=== PATIENT | male | born 1955 | race Caucasian/White ===

== ENCOUNTER 2025-01-03 01:51 | Day surgery (SDC) | payer MEDICARE, OTHER, SELFPAY ==
[2024-12-24 11:24] VITALS: BMI 27.6
--- OUTSIDE RECORDS SUMMARY | 2025-01-03 01:54 | XMS_ITS | Encounter Summary ---
Author Organization [facility] Address [address] [place] [address] Care Team Providers Care Hose Finisher Name Role Phone Kalpana Garcia Primary Care Provider +1- [phone] Encounter Details Date Type Department Care Team (Late st Contact Info) Description 01/02/2025 Sapato.rut Message Enc [facility] Medical Group Family & Internal Medicine 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
--- OUTSIDE RECORDS SUMMARY | 2025-01-03 01:54 | XMS_ITS | Encounter Summary ---
Author Organization [facility] Address [address] [place] [address] Phone Care Team Providers Care Ice Scraper Name Role Phone Kalpana Garcia Primary Care Provider + Reason for Visit * Reason Onset Date Comments Clearance for Endoscopy 01/02/2025 Encounter Details Date Type Department Care Team (Late st Contact Info) Description 01/02/[address] 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 Do no have cb number. Upon search, I lm for Sybil with [facility] Endoscopy lab, , requesting cb. * Telephone Encounter - Krystal Carpio - 01/02/2025 11:54 AM CDT Maite Strauss with [facility] called requesting clearance for tomorrow's procedure to be faxed to [phone]. documented in this encounter Plan of Treatment Not on file documented as of this encounter Visit Diagnoses Not on filedocumented in this encounter Care Teams Ice Scraper Relationship Specialty Start Date End Date Kalpana Garcia PA [address] [place] [address] PCP - General Nurse Practitioner 12/16/22 documented as of this encounter
--- OUTSIDE RECORDS SUMMARY | 2025-01-03 01:54 | XMS_ITS | Clinical Summary ---
Author Organization [facility] Address [address] [place] [address] Care Team Providers Care Flour Worker Name Role Phone Kalpana Garcia Primary Care Provider + Allergies No known active allergies Medications aspirin 81 mg enteric coated tablet Take 1 tablet (81 mg total) by mouth daily Active SUMAtriptan (IMITREX) 25 mg tablet Take 1 tablet (25 mg total) by mouth as needed 3 Active amoxicillin (AMOXIL) 500 mg tablet/capsuleI ndications:Prop hylaxis, Medical Take 4 caps (2000 mg) 1 hour prior to procedure. 12 tablet/capsu le 1 3 Active atorvastatin (LIPITOR) 40 mg tablet Take 1 tablet (40 mg total) by mouth daily 90 tablet 3 5 12/28/19 26 Active simvastatin (ZOCOR) 20 mg tablet Take 1 tablet (20 mg total) by mouth reel hooker before breakfast 3 12/28/19 25 Discontinu ed(Alterna te therapy) Active Problems Problem Noted Date Diagnosed Date Hypercholesteremia 12/09/2023 Syncope 01/02/2013 Palpitations 10/31/2012 Mitral valve disease 10/31/2012 Encounters Date Type Department Care Team Description 01/02/2025 Telephone [facility] Medicine Cardiology [address] [facility] 8th [place] [address] [place] [address] Neville Arora MD Clearance for Endoscopy 12/27/2024 7:37 AM CDT - 12/27/2024 11:59 PM CDT Hospital Encounter [facility] [address] [place] [address] Neville Arora MD Hypercholesteremia Discharge Disposition: Discharge to home or self care 12/27/2024 Results Follow-Up [facility] Medicine Cardiology [address] [facility] 8th [place] [address] [place] [address] Coronary Calcium Scoring 12/12/2024 10:15 AM CDT Office Visit [facility] Medicine Cardiology [address] [facility] 8th [place] [address] [place] [address] Neville Arora MD Hypercholesteremia (Primary Dx); Mitral valve disease from Last 3 Months Family History Medical History Relation Name Comments Congenital heart disease Brother Congenital heart disease Father Congenital heart disease Sister Relation Name Status Comments Brother Father Sister Social History Tobacco Use Types Packs/Day Years Used Date Smoking Tobacco: Never Sex and Gender Information Value Date Recorded Sex Assigned at Not on file 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 Gender Identity Not on file Sexual Orientation Not on file Obstetrics History Last Filed Vital Signs Vital Sign Reading Time Taken Comments Blood Pressure 123/82 12/12/2024 9:50 AM CDT Pulse 69 12/12/2024 9:50 AM CDT Temperature - - Respiratory Rate - - Oxygen Saturation 99% 12/12/2024 9:50 AM CDT Inhaled Oxygen Concentration - - Weight 95.7 kg (211 lb) 12/12/2024 9:50 AM CDT Height 185.4 cm (6' 1) 12/12/2024 9:50 AM CDT Body Mass Index 27.84 12/12/2024 9:50 AM CDT Plan of Treatment Health Maintenance Due Date Last Done Comments Colon Cancer Screening-Colonoscopy 1957 Depression Screening 1957 Fall Risk Assessment 1957 Hepatitis C Screening 1957 Prostate Cancer Screening-PSA 1957 DTaP/Tdap/Td Vaccine (1 - Tdap) 1968 Hepatitis B Screening 1975 Well Visit 65+ 2022 Covid-19 Vaccine (2024-2 6 season) 2024 03/12/2022, 04/03/2021, 07/10/2020 Influenza Vaccine (#1) 2024 4, 03/12/2022, 03/04/2021, Additional history exists Pneumococcal vaccine 65+ Completed 12/03/2022 Zoster Vaccine Completed 04/29/2023, 02/24/2023 Procedures Procedure Name Priority Date/Time Associated Diagnosis Comments CT HEART CALCIUM Schedule Routine, Read Routine (OP Routine) 12/27/2024 8:24 AM CDT Hypercholesteremia from Last 3 Months Results * CT Coronary Calcium Scoring (12/27/2024 8:24 AM CDT) Anatomical Region Laterality Modality Chest Computed Tomogra phy 12/27/2024 11:1 2 AM CDT Impressions 12/27/2024 11:12 AM CDT 1. Calcium score of 82.4 2. Incidental findings: None significant. Electronically signed by: Jimmie Alvarado M.D. Narrative 12/27/2024 11:12 AM CDT EXAMINATION: CT OF THE HEART W/O CONTRAST - CORONARY CALCIUM TECHNIQUE: High-resolution, cardiac-gated Computed Tomography of the heart with attention devoted to the coronary arteries was performed with a 128 slice MDCT Scanner. Coronary calcification was analyzed using a FNZ 3D workstation with calcified plaque analysis software. RESULTS: Interpretation of coronary calcification is provided below: Your patient's Agatston Coronary Calcium score is 82.4. This total Coronary Calcium score of 82.4 places the patient between the 25th and 50th percentile for an apparently healthy person of the same age and gender. In general, the lower the percentile rank, the lower the cardiac risk. This percentile rank assumes the absence of symptoms and does not account for risk factors or for the number of calcified vessels. Incidental Findings: There is no consolidation, pleural effusion, or pneumothorax within the imaged lungs. A mitral valve replacement is present. Mitral annular calcification is noted. Calcified mediastinal and right hilar lymph nodes are consistent with old granulomatous disease. No aggressive osseous lesion is identified. The Calcium Score should be interpreted in the context of several factors: Clinical decision-making requires the Calcium Score to be weighed along with other factors, i.e. the number of calcified vessels, the patient's age, gender, symptoms and risk factors. Normal score for any age is ideally zero. The Calcium Score has greater significance when it is above the 75th percentile of age and sex group, or if calcium is present in 2 or more vessels. A score of zero indicates no coronary artery calcification and this implies the absence of significant angiographic coronary narrowing in 99% of cases. It does not absolutely rule out the presence of soft non-calcified plaque, especially in younger patients and those who smoke heavily. Procedure Note Jimmie Alvarado MD PhD - 12/27/2024 EXAMINATION: CT OF THE HEART W/O CONTRAST - CORONARY CALCIUM TECHNIQUE: High-resolution, cardiac-gated Computed Tomography of the heart with attention devoted to the coronary arteries was performed with a 128 slice MDCT Scanner. Coronary calcification was analyzed using a FNZ 3D workstation with calcified plaque analysis software. RESULTS: Interpretation of coronary calcification is provided below: Your patient's Agatston Coronary Calcium score is 82.4. This total Coronary Calcium score of 82.4 places the patient between the 25th and 50th percentile for an apparently healthy person of the same age and gender. In general, the lower the percentile rank, the lower the cardiac risk. This percentile rank assumes the absence of symptoms and does not account for risk factors or for the number of calcified vessels. Incidental Findings: There is no consolidation, pleural effusion, or pneumothorax within the imaged lungs. A mitral valve replacement is present. Mitral annular calcification is noted. Calcified mediastinal and right hilar lymph nodes are consistent with old granulomatous disease. No aggressive osseous lesion is identified. The Calcium Score should be interpreted in the context of several factors: Clinical decision-making requires the Calcium Score to be weighed along with other factors, i.e. the number of calcified vessels, the patient's age, gender, symptoms and risk factors. Normal score for any age is ideally zero. The Calcium Score has greater significance when it is above the 75th percentile of age and sex group, or if calcium is present in 2 or more vessels. A score of zero indicates no coronary artery calcification and this implies the absence of significant angiographic coronary narrowing in 99% of cases. It does not absolutely rule out the presence of soft non-calcified plaque, especially in younger patients and those who smoke heavily. IMPRESSION: 1. Calcium score of 82.4 2. Incidental findings: None significant. Electronically signed by: Jimmie Alvarado M.D. Neville Arora MD IMG CT PROCEDURES Kathryn l Result from Last 3 Months Insurance [employer] MEDICARE FOR LIFE Care Teams Flour Worker Relationship Specialty Start Date End Date Kalpana Garcia PA [address] [place] [id number] PCP - General Nurse Practitioner 12/16/22
--- OUTSIDE RECORDS SUMMARY | 2025-01-03 01:54 | XMS_ITS | Clinical Summary ---
Author Organization [facility] [place] [address] Care Team Providers Care Rod Bending Machine Operator Name Role Phone Mert Garcia Primary Care Provider +1- [phone] Allergies No known active allergies Medications aspirin EC 81 MG tablet Take 1 tablet (81 mg total) by mouth daily. Active multi vitamin/minerals tablet Take 1 tablet by mouth daily. Active SUMAtriptan (IMITREX) 25 MG tabletIndications:R ight hip pain,Chronic right-sided low back pain without sciatica Take 1 tablet (25 mg total) by mouth as needed. Take one tablet at onset of migraine. May repeat after 2 hours if needed. Do not exceed 3 tablets in 24 hours. 12 tablet 3 Active simvastatin (ZOCOR) 20 MG tabletIndications:M ixed hyperlipidemia Take 1 tablet (20 mg total) by mouth every morning. 90 tablet 3 5 Active Active Problems Problem Noted Date Diagnosed Date Congenital heart defect (HHS/HCC) 05/22/2020 Intractable migraine without aura and without status migrainosus 05/21/2020 Mixed hyperlipidemia 05/21/2020 Syncope 01/02/2013 Mitral valve disease 10/31/2012 Palpitations 10/31/2012 Resolved Problems Problem Noted Date Diagnosed Date Resolved Date Right knee injury 12/03/2022 07/31/2024 Toenail fungus 12/03/2022 07/31/2024 Encounters Date Type Department Care Team Description 01/02/2025 MyChart Message Enc [facility] Medical Group Family & Internal Medicine [address] [phone] Mert Garcia, APNP stop simvastatin automatic delivery from [employer] 12/12/2024 Scan MG HEALTH INFO SRVCS Scanned, Doc Med Group 12/12/2024 MyChart Message Enc [facility] & Internal [address] [phone] Mert Garcia, APNP right knee 10/17/2024 Results Follow-Up [facility] Internal [address] [address] Mert Garcia, APNP XR WRIST LT MIN 3V 10/16/2024 Travel 10/16/2024 MyChart Message Enc [facility] Internal [address] [phone] Mert Garcia, APNP Fractured wrist from Last 3 Months Immunizations Immunization Administration Dates Next Due FLUAD (IIV, Trivalent, 0.5 M L Pre-filled Syringe) 03/06/2024 Fluzone High Dose - >Age 65 (Prefilled Syringe) 02/17/2023 Influenza Adult (Generic) 03/12/2022,03/04/2021, 02/08/2018 MODERNA COVID-19 BIVALENT (1 2+), MRNA, LNP-S, PF 03/12/2022 MODERNA COVID-19 (JITNEY DRIVER TINO HORACIO), MRNA, LNP-S, PF, 50 MCG/ 0.25 ML DOSE 04/03/2021 Pneumococcal (Prevnar 20) 12/03/2022 Shingrix 04/29/2023,02/24/2023 Family History Medical History Relation Comments Autoimmune Disease Brother Cardiac issues Father Cardiac issues Sister 1 Anxiety Sister 2 Depression Sister 2 Depression Sister 5 Relation Status Comments Brother Alive Father Mother Sister 1 Alive Sister 2 Alive Sister 3 Alive Sister 4 Alive Sister 5 Alive Son 1 Alive Son 2 Alive Son 3 Alive Social History Tobacco Use Types Packs/Day Years Used Date Smoking Tobacco: Never Smokeless Tobacco: Never Tobacco Cessation:Counseling Given: No Alcohol Use Standard Drinks/Week Comments Yes 50 (1 standard drink = 0.6 oz pure alcohol) Every day pt drinks, couple glasses of wine PHQ-2 Answer Date Recorded Patient Health Questionnaire-2 Score 0 07/31/2024 Sex and Gender Information Value Date Recorded Sex Assigned at Not on file 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 Gender Identity Male 09/10/2021 4:20 PM CDT Sexual Orientation Bisexual 09/10/2021 4: 20 PM CDT Last Filed Vital Signs Vital Sign Reading Time Taken Comments Blood Pressure 118/70 07/31/2024 8:42 AM CDT Pulse 67 07/31/2024 8:42 AM CDT Temperature 36 C (96.8 F) 07/31/2024 8:42 AM CDT Respiratory Rate 16 07/31/2024 8:42 AM CDT Oxygen Saturation 97% 07/31/2024 8:42 AM CDT Inhaled Oxygen Concentration - - Weight 98.2 kg (216 lb 6.4 oz) 07/31/2024 8:42 A M CDT Height 185.4 cm (6' 1) 07/31/2024 8:42 AM CDT Body Mass Index 28.55 07/31/2024 8:42 AM CDT Plan of Treatment Health Maintenance Due Date Last Done Comments DTaP, Tdap and Td Vaccines ( 1 - Tdap) 1976 RSV Immunization or 60+ Years (1 - Risk 60-74 years 1-dose series) 2017 Annual Medicare Wellness Visit 12/05/2023 12/03/2022 COVID-19 Vaccine (4 - 2024-2 6 season) 2024 03/12/2022, 04/03/2021, 07/10/2020 Colorectal Cancer Screening Colonoscopy (10 Years) 07/24/2028 07/24/2018 Pneumococcal Vaccine: 50+ Years Completed 12/03/2022 Zoster Vaccines Completed 04/29/2023, 02/24/2023 PHQ-2 (Physician [facility]) Completed 07/31/2024 Hepatitis C Completed 08/03/2024 Meningococcal B Vaccine Aged Out No l onger eligible based on patient's age to complete this topic Meningococcal Vaccine Aged Out No zoë uyen eligible based on patient's age to complete this topic RSV Immunizations Under 20 Months Aged Out No longer eligible b ased on patient's age to complete this topic Procedures Procedure Name Priority Date/Time Associated Diagnosis Comments XR WRIST LT MIN 3V Routine 10/16/2024 11 :37 AM CDT Acute pain of left wrist HEPATITIS C ANTIBODY Routine 08/03/2024 8:23 AM CDT Need for hepatitis C screening test COLONOSCOPY GENERIC (SCAN ORDER) 07/24/2018 from Last 3 Months or Most Recently Relevant to Health Maintenance Results * XR WRIST LT MIN 3V (10/16/2024 11:37 AM CDT) Anatomical Region Laterality Modality Wrist Radiographic Nena ging 10/16/2024 4:27 PM CDT Impressions 10/16/2024 4:28 PM CDT IMPRESSION: No radiographic abnormality. Ordered By: MERT GARCIA Interpreted By: Jimmie Concepcion MD, 10/16/2024 4:27 PM Narrative 10/16/2024 4:28 PM CDT [facility] [place] [address] Examination: XR WRIST LT MIN 3V Exam time: 10/16/2024 11:28 AM Clinical history: Wrist pain after a fall Comparison: No prior exam Technique: PA, oblique, and lateral views left wrist Findings: Left distal radius and ulna appear unremarkable. Carpal bone relationships and appearances appear unremarkable with no findings suggestive of fracture. No evidence of fracture or acute osseous abnormality involving the metacarpals. No evidence of abnormal soft tissue densities. Procedure Note Jimmie Concepcion MD - 10/16/2024 [facility] [place] [address] Examination: XR WRIST LT MIN 3V Exam time: 10/16/2024 11:28 AM Clinical history: Wrist pain after a fall Comparison: No prior exam Technique: PA, oblique, and lateral views left wrist Findings: Left distal radius and ulna appear unremarkable. Carpal bonerelationships and appearances appear unremarkable with no findingssuggestive of fracture. No evidence of fracture or acute osseousabnormality involving the metacarpals. No evidence of abnormal soft tissuedensities. IMPRESSION: No radiographic abnormality. Ordered By: MERT GARCIA Interpreted By: Jimmie Concepcion MD, 10/16/2024 4:27 PM [facility] Final Resul t * HEPATITIS C AB ([facility] ONLY) (08/03/2024 8:23 AM CDT) HEPATITIS C AB NON-REACTI VE NON-REACT PARISH 08/03/2024 6:[address] [facility] Comment: ANTIBODIES TO HCV NOT DETECTED. DOES NOT EXCLUDE THE POSSIBILITY OF EXPOSURE TO HCV. 08/03/2024 8:23 AM CDT [facility] Final Resul t [facility] [address] [place] [address], [id number] * COLONOSCOPY GENERIC (07/24/2018) 07/24/2018 Narrative 07/24/2018 Ordered by an unspecified provider. us Documents Scanned SCANNING Final Result from Last 3 Months or Most Recently Relevant to Health Maintenance Insurance MEDICARE [employer] Care Teams Rod Bending Machine Operator Relationship Specialty Start Date End Date Mert Garcia APNP [address] [place] [phone] PCP - General NURSE PRACTITIONER 05/19/20
--- OUTSIDE RECORDS SUMMARY | 2025-01-03 01:55 | XMS_ITS | Encounter Summary ---
Author Organization [facility] Address [address] [place] [address] Care Team Providers Care Sourcing Manager Name Role Phone Kalpana Garcia Primary Care Provider [phone]- [phone] Encounter Details Date Type Department Care Team (Late st Contact Info) Description 02/24/2022 [facility] Message Enc [facility] Medical Group Family & Internal Medicine [facility] [address] [place] [address] Kalpana Garcia APNP [address] [place], [place] [phone] shots Social History Tobacco Use Types Packs/Day Years Used Date Smoking Tobacco: Never Smokeless Tobacco: Never Alcohol Use Standard Drinks/Week Comments Yes 0 (1 standard drink = 0.6 oz pure alcohol) Every day pt drinks, couple glasses of wine PHQ-2 Answer Date Recorded PHQ-2 Score - If the patient scores above 3, please move on to questions 3-9 0 09/11/2021 Sex and Gender Information Value Date Recorded Sex Assigned at Not on file 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:55 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
--- OUTSIDE RECORDS SUMMARY | 2025-01-03 01:55 | XMS_ITS | Encounter Summary ---
Author Organization [facility] Address [address] [place] [address] Care Team Providers Care Cnc Operator Name Role Phone Mert Garcia Primary Care Provider [phone]- [phone] Reason for Visit * Reason Onset Date Comments Orders 10/16/2024 Encounter Details Date Type Department Care Team (Late st Contact Info) Description 10/16/2024 [facility] Message Enc [facility] Medical Group Family & Internal Medicine [facility] [address] [place] [address] Mert Garcia APNP [address] [place] [address] Fractured wrist Social History Tobacco Use Types Packs/Day Years [...] on file 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 He would like the Xray to be here in our office. documented in this encounter Plan of Treatment Not on file documented as of this encounter Results * XR WRIST LT MIN 3V (10/16/2024 11:37 AM CDT) Anatomical Region Laterality Modality Wrist Radiographic Nena ging 10/16/2024 4:27 PM CDT Impressions 10/16/2024 4:28 PM CDT IMPRESSION: No radiographic abnormality. Ordered By: MERT GARCIA Interpreted By: Jimmie Concepcion MD, 10/16/2024 4:27 PM Narrative 10/16/2024 4:28 PM CDT [facility] Family [place] [address] Examination: XR WRIST LT MIN 3V Exam [...] Procedure Note Jimmie Concepcion MD - 10/16/2024 [facility] Family and Internal [facility] [address] Examination: XR WRIST LT MIN 3V Exam [...] By: Jimmie Concepcion MD, 10/16/2024 4:27 PM us [facility] Final Resul t documented in this encounter Visit Diagnoses Diagnosis Acute pain of left wrist- Primary documented in this encounter Additional Health Concerns Assessment Noted Time PHQ-9 Depression Total Score: 0 09/12/19 22 10:19 AM CDT documented as of this encounter Care Teams Cnc Operator Relationship Specialty Start Date End Date Mert Garcia APNP [address] [place], [place] [phone] PCP - General NURSE PRACTITIONER 05/19/20 documented as of this encounter
--- OUTSIDE RECORDS SUMMARY | 2025-01-03 01:55 | XMS_ITS | Encounter Summary ---
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 No / Unsure 10/18/2021 6:23 PM CDT documented as of this encounter Plan of Treatment Not on file documented as of this encounter Visit Diagnoses Not on filedocumented in this encounter Additional Health Concerns Assessment Noted Time PHQ-9 Depression Total Score: 0 09/12/19 10:19 AM CDT documented as of this encounter Care Teams Exhibit Technician Relationship Specialty Start Date End Date Kalpana Garcia APNP [address] [place] [address] PCP - General NURSE PRACTITIONER 05/19/20 documented as of this encounter
--- OUTSIDE RECORDS SUMMARY | 2025-01-03 01:55 | XMS_ITS | Encounter Summary ---
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 [place] [address] PCP - General NURSE PRACTITIONER 05/19/20 documented as of this encounter
--- OUTSIDE RECORDS SUMMARY | 2025-01-03 01:55 | XMS_ITS | Encounter Summary ---
Author Organization [facility] Address [address] [place] [address] Phone Care Team Providers Care Spring Forger Name Role Phone Kalpana Garcia Primary Care Provider + Encounter Details Date Type Department Care Team (Late st Contact Info) Description 12/27/2024 Results Follow-Up [facility] Medicine Cardiology [address] [facility] Advanced Medicine 8th [place] [address] [place] [address] Neville Arora MD [address] [facility] [address] [place], [place] [id number] [place] Coronary Calcium Scoring Social History Tobacco Use Types Packs/Day Years Used Date Smoking Tobacco: Never Sex and Gender Information Value Date Recorded Sex Assigned at Not on file 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 Gender Identity Not on file Sexual Orientation Not on file documented as of this encounter Ordered Prescriptions Prescription Sig Dispense Quantity Refills Last Filled Start Date End Date atorvastatin (LIPITOR) 40 mg tablet Take 1 tablet (40 mg total) by mouth daily 90 tablet 3 12/27/2024 12/27/2025 documented in this encounter Plan of Treatment Not on file documented as of this encounter Visit Diagnoses Not on filedocumented in this encounter Discontinued Medications Medication Sig Discontinue Reason Start Date End Da te simvastatin (ZOCOR) 20 mg tablet Take 1 tablet (20 mg total) by mouth maintenance technician before breakfast Alternate therapy 06/29/2022 12/27/2024 documented as of this encounter Care Teams Spring Forger Relationship Specialty Start Date End Date Kalpana Garcia PA [address] [place] [id number] PCP - General Nurse Practitioner 12/16/22 documented as of this encounter
--- OUTSIDE RECORDS SUMMARY | 2025-01-03 01:55 | XMS_ITS | Encounter Summary ---
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
--- OUTSIDE RECORDS SUMMARY | 2025-01-03 01:55 | XMS_ITS | Encounter Summary ---
Author Organization [facility] Address [address] [place] [address] Care Team Providers Care Pmo Lead Name Role Phone Kalpana Garcia Primary Care Provider [phone]- [phone] Encounter Details Date Type Department Care Team (Latest Contact Info) Description 06/29/2022 [employer] Message Enc [facility] Medical Group Family & Internal Medicine 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
--- OUTSIDE RECORDS SUMMARY | 2025-01-03 01:55 | XMS_ITS | Encounter Summary ---
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 No / Unsure 11/20/2021 1:10 PM CDT documented as of this encounter Plan of Treatment Not on file documented as of this encounter Visit Diagnoses Not on filedocumented in this encounter Additional Health Concerns Assessment Noted Time PHQ-9 Depression Total Score: 0 09/12/19 22 10:19 AM CDT documented as of this encounter Care Teams Superintendent Warehouse Relationship Specialty Start Date End Date Kalpana Garcia APNP [address] [place] [address] PCP - General NURSE PRACTITIONER 05/19/20 documented as of this encounter
--- OUTSIDE RECORDS SUMMARY | 2025-01-03 01:55 | XMS_ITS | Encounter Summary ---
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 Gender Identity Male 09/10/2021 4:20 PM CDT Sexual Orientation Bisexual 09/10/2021 4: 20 PM CDT documented as of this encounter Plan of Treatment Not on file documented as of this encounter Visit Diagnoses Not on filedocumented in this encounter Additional Health Concerns Assessment Noted Time PHQ-9 Depression Total Score: 0 09/12/19 22 10:19 AM CDT documented as of this encounter Care Teams Delivery Representative Relationship Specialty Start Date End Date Kalpana Garcia APNP [address] [place] [address] PCP - General NURSE PRACTITIONER 05/19/20 documented as of this encounter
[2025-01-03 06:58] VITALS: BP 138/99; PULSE 66; RESP 18; TEMP 36.1; O2SAT 100
[2025-01-03] MEDS: LACTATED RINGERS 1,000 ML 150 ML IV CONT (07:05)
--- NOTE | 2025-01-03 07:50 | P.PNAN_ITS ---
Anes - Initial Pre Proc Eval Procedure: Operation Date: 01/03/25 08:00 Proposed Procedures p Screening Colonoscopy - Alvin Bermudez MD Date/Time: 01/03/25 07:50 Surgeon: Alvin Bermudez MD Pre Op Diagnosis: Screening Patient Data Age: 69 Gender: M Height: 1.85 m Weight: 93.7 kg Last Vital Signs Temp 97 F L 01/03/25 06:58 Pulse 66 01/03/25 06:58 Resp 18 01/03/25 06:58 BP 138/99 H 01/03/25 06:58 Pulse Ox 100 01/03/25 06:58 O2 Del Method Room Air 01/03/25 06:58 Allergies Allergy/AdvReac Type Severity Reaction Status Date / Time No Known Allergies Allergy Verified 01/03/25 06:57 Home Medications ?Medication ?Instructions ?Recorded ?Confirmed ?Type aspirin 81 mg tablet,delayed 81 mg PO DAILY 12/24/24 0 01/03/25 History release (Adult Aspirin Regimen) multivitamin (Daily Multi-Vitamin 1 tablet PO DAILY 01/03/25 History tablet) simvastatin 20 mg tablet 20 mg PO DAILY 12/24/2408/24 History sumatriptan succinate 25 mg tablet 25 mg PO Q2H PRN he adache 12/24/24 12/24/24 History (Imitrex) Patient hx anesthesia problems: none Family hx anesthesia problems: none Results Review: All pre-operative results and documents have been reviewed as part of the pre- operative evaluation. [facility] Social History Social History Smoking status: Never smoker Alcohol intake: current Alcohol use details: everyday-2 glasses of wine Substance use: never Living arrangements: with family Spiritual care concerns: No Anes - Eval Final PreProcedure Day of Procedure 01/03/25 07:50 Patient weight: normal Heart: regular rate and rhythm Lungs: clear to auscultation Airway: Mallampati scale class II Neurological: alert and oriented Last oral intake: >/= 8 hours ASA classification: II Emergent: no Anesthetic plan: proceed Anesthesia type and monitoring: general GIVS and standard monitoring Results Review: All pre-operative results and documents have been reviewed as part of the pre- operative evaluation. Informed Consent: The patient's anesthetic plan and its attendant risks and benefits were discussed with the patient/family/POA. Questions were solicited and answers provided to the satisfaction of the patient/family/POA.
--- NOTE | 2025-01-03 08:01 | PM.IMHP ---
H&P: HPI History of Present Illness Date/Time: 01/03/25 08:01 Chief Complaint: History of colon polyps Narrative: The patient has a history of colonic polyps, the last colonoscopy was 5 years ago. Review of Systems Review of Systems: All systems reviewed & are unremarkable except as noted in HPI and below [facility] Social History Social History Smoking status: Never smoker Alcohol intake: current Alcohol use details: everyday-2 glasses of wine Substance use: never Living arrangements: with family Spiritual care concerns: No Meds Home Medications and Allergies Home Medications ?Medication ?Instructions ?Recorded ?Confirmed ?Type aspirin 81 mg tablet,delayed 81 mg PO DAILY 12/24/24 01/03/25 History release (Adult Aspirin Regimen) multivitamin (Daily Multi-Vitamin 1 tablet PO DAILY 12/24/24 01/03/25 History tablet) simvastatin 20 mg tablet 20 mg PO DAILY 12/24/24 01/03/25 History sumatriptan succinate 25 mg tablet 25 mg PO Q2H PRN headache 12/24/24 12/24/24 History (Imitrex) Allergies Allergy/AdvReac Type Severity Reaction Status Date / Time No Known Allergies Allergy Verified 01/03/25 06:57 Vital Signs Vital Signs - 24 hr 01/03/25 06:58 Temperature 97 F L Pulse Rate 66 Respiratory Rate 18 Blood Pressure 138/99 H Pulse Oximetry 100 Oxygen Delivery Room Air Exam Const: General: cooperative and healthy appearing Resp: Effort & Inspection: normal respiratory effort and able to speak in complete sentences Auscultation: clear to auscultation bilaterally Cardio: Rate: regular rate Rhythm: regular rhythm GI: Inspection: normal to inspection GI Palp: No No hepatosplenomegaly present Auscultation: normal bowel sounds Rectal Exam: deferred Skin: General skin exam: normal color Psych: Appearance: grossly normal Mental Status: mental status grossly normal Assessment and Plan Assessment and plan (1) History of colonic polyps: Code(s): Z86.0100 - Personal history of colon polyps, unspecified Status: Acute Assessment and Plan: The patient is deemed a good candidate for the procedure. Consent signed. Will proceed.
[2025-01-03] MEDS: SIMETHICONE ORAL SUSPENSION 20 MG/0.3 ML 30 ML BOTTLE 0.6 ML IRRIGATION (08:15)
[2025-01-03 08:26] VITALS: BP 125/85; PULSE 67; RESP 23; O2SAT 100
[2025-01-03 08:36] VITALS: BP 137/83; PULSE 70; RESP 21; O2SAT 100
[2025-01-03 08:46] VITALS: BP 145/92; PULSE 64; RESP 20; O2SAT 100
== END 2025-01-03 08:56 | disposition home or self-care (01) ==
PROVIDERS: PCP Registered Nurse; Visit Provider Internal Medicine Gastroenterology
PROC: 0DJD8ZZ Inspection of Lower Intestinal Tract, Via Natural or Artificial Opening Endoscopic (ICD-10-PCS; CPT 45378; principal; 2025-01-03 08:00)
DX: Z12.11 Encounter for screening for malignant neoplasm of colon (principal); K57.30 Diverticulosis of large intestine without perforation or abscess without bleeding; K64.8 Other hemorrhoids; Z86.0100 Personal history of colon polyps, unspecified
CPT/HCPCS: G0105; J2003; J2704; J7120